=== PATIENT | female | born 1970 | race American Indian/Alaskan Native ===

== ENCOUNTER 2016-07-02 09:05 | Emergency (ER) | payer BC, OTHER ==
--- NOTE | 2016-07-02 09:26 | PDOC ---
History of Present Illness - General Chief Complaint: Blood Pressure Problem Stated Complaint: HIGH BLOOD PRESSURE Time Seen by Provider: 07/02/16 09:06 History Source: Patient Exam Limitations: No Limitations - History of Present Illness Initial Comments: 46 yo F history HTN, hypothyroid presents with elevated BP. 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 Over the past few days she states that her head felt heavy, she checked her pressure, found it to be elevated at home. BP has been 160s/100s for past 3 days. Denies WARNER, weakness , cp, SOB. She c/o numbness to L arm x1 day. Past History - Past Medical History Allergies/Adverse Reactions: Allergies Allergy/AdvReac Type Severity Reaction Status Date / Time No Known Drug Allergies Allergy Verified 07/02/16 09:06 Home Medications: Ambulatory Orders Ramipril 5 mg PO DAILY 09/12/12 Levothyroxine [Synthroid -] 50 mcg PO DAILY 07/02/16 Multivitamins [Tab-A-Vit -] 1 tab PO DAILY 07/02/16 Ramipril [Altace] 10 mg PO DAILY #7 capsule 07/02/16 HTN: Yes Thyroid Disease: Yes - Psycho/Social/Smoking Cessation Hx Anxiety: No Suicidal Ideation: No Smoking History: Never smoked Information on smoking cessation initiated: No Hx Alcohol Use: No Drug/Substance Use Hx: No Review of Systems - Review of Systems Able to Perform ROS?: Yes Comments:: GENERAL/CONSTITUTIONAL: No fever or chills. No weakness. HEAD, EYES, EARS, NOSE AND THROAT: No change in vision. No ear pain or discharge. No sore throat. CARDIOVASCULAR: No chest pain or shortness of breath. RESPIRATORY: No cough, wheezing, or hemoptysis. GASTROINTESTINAL: No nausea, vomiting, diarrhea or constipation. GENITOURINARY: No dysuria, frequency, or change in urination. MUSCULOSKELETAL: No joint or muscle swelling or pain. No neck or back pain. SKIN: No rash NEUROLOGIC: No headache, vertigo, loss of consciousness, or change in strength. +L arm numbness. ENDOCRINE: No increased thirst. No abnormal weight change. HEMATOLOGIC/LYMPHATIC: No anemia, easy bleeding, or history of blood clots. ALLERGIC/IMMUNOLOGIC: No hives or skin allergy. *Physical Exam - Vital Signs Last Vital Signs Temp Pulse Resp BP Pulse Ox 98.9 F 88 18 168/105 98 07/02/16 09:05 07/02/16 09:05 07/02/16 09:05 07/02/16 09:05 07/02/16 09:05 - Physical Exam Comments: GENERAL: Awake, alert, and fully oriented, in no acute distress HEAD: No signs of trauma EYES: PERRLA, EOMI, sclera anicteric, conjunctiva clear ENT: Auricles normal inspection, hearing grossly normal, nares patent, oropharynx clear without exudates. Moist mucosa NECK: Normal ROM, supple, no lymphadenopathy, JVD, or masses LUNGS: Breath sounds equal, clear to auscultation bilaterally. No wheezes, and no crackles HEART: Regular rate and rhythm, normal S1 and S2, no murmurs, rubs or gallops ABDOMEN: Soft, nontender, normoactive bowel sounds. No guarding, no rebound. No masses EXTREMITIES: Normal range of motion, no edema. No clubbing or cyanosis. No cords, erythema, or tenderness NEUROLOGICAL: Cranial nerves II through XII grossly intact. Normal speech, normal gait. Motor and sensation intact. SKIN: Warm, Dry, normal turgor, no rashes or lesions noted. Heart Score/ECG Review - History History: Slightly suspicious - Electrocardiogram EKG: Normal - Age Age: 45-65 - Risk Factors Risk Factors Heart Score: Yes Hx Hypertension Based on the list above the patient has:: 1-2 risk factors - Troponin Troponin: </= normal limit - Score Heart Score - Total: 2 - ECG Impressions Comment:: EKG 09:43- NSR 74 bpm, no acute ST/T changes ED Treatment Course - LABORATORY CBC & Chemistry Diagram: 07/02/16 09:55 07/02/16 09:55 Medical Decision Making - Medical Decision Making Patient was given an additional 5 mg of ramipril in the ED with improvement in her BP. Serial CE negative x2. Stable for DC home with outpatient f/u. *DC/Admit/Observation/Transfer Diagnosis at time of Disposition: Hypertension Qualifiers: Hypertension type: essential hypertension Qualified Code(s): I10 - Essential ( primary) hypertension - Discharge Dispostion Disposition: HOME Condition at time of disposition: Improved Admit: No - Prescriptions Prescriptions: Ramipril [Altace] 10 mg PO DAILY #7 capsule - Referrals Referrals: Jadon Rodríguez [Primary Care Provider] - - Patient Instructions Printed Discharge Instructions: DI for High Blood Pressure
[2016-07-02 09:30] VITALS: TEMP 98.9; BMI 26.5
[2016-07-02 10:19] LABS: BASOPHIL 1.3 % (0-2.0); EOSINOPHIL 1.5 % (0-4.5); MCHC 33.8 g/dl (32.0-36.0); MEAN CELL VOLUME 85.8 fl (80-96); MEAN PLT VOLUME 7.7 fl (7.5-11.1); NEUTROPHILS 60.7 % (42.8-82.8); PLATELET COUNT 380 K/MM3 (134-434); RDW 12.3 % (11.6-15.6); WHITE BLOOD COUNT 10.8 K/mm3 (4.0-10.0)
[2016-07-02 10:59] LABS: ALBUMIN 4.1 g/dl (3.5-5.0); ALK PHOS 57 U/L (32-92); ANION GAP 7 (8-16); BILIRUBIN,TOTAL 0.9 mg/dl (0.2-1.0); CO2 25 mmol/L (22-28); CREATININE 0.7 mg/dl (0.6-1.3); GLUCOSE,RANDOM 108 mg/dl (74-106); SGOT/AST 20 U/L (10-42); SGPT/ALT 19 U/L (10-40); TOT PROT 7.2 g/dl (6.4-8.3)
[2016-07-02 11:04] LABS: CPK(DFH) 86 IU/L (26-140)
[2016-07-02 11:27] LABS: TROPONIN I (DFP) < 0.03 ng/ml (0.03-0.50)
[2016-07-02] MEDS ORDERED: RAMIPRIL 5 MG CAPSULE (FP) PO ONE (11:44)
[2016-07-02 15:27] LABS: CPK(DFH) 74 IU/L (26-140)
[2016-07-02 15:59] LABS: TROPONIN I (DFP) < 0.03 ng/ml (0.03-0.50)
[2016-07-02 16:27] VITALS: BP 131/70; PULSE 81
[2016-07-04 13:15] LABS: THYROID STIMULATING HORMONE 3.97 uIU/ml (0.358-3.74)
--- NOTE | 2016-07-05 20:38 | EKG ---
Test Reason : Blood Pressure : / mmHG Vent. Rate : 074 BPM Atrial Rate : 074 BPM P-R Int : 170 ms QRS Dur : 076 ms QT Int : 374 ms P-R-T Axes : 025 -10 015 degrees QTc Int : 415 ms NORMAL SINUS RHYTHM NORMAL ECG WHEN COMPARED WITH ECG OF 12-SEP-2012 09:11, NO SIGNIFICANT CHANGE WAS FOUND Confirmed by HENOK DENNY MD ([id number]) on 07/05/2016 8:37:38 PM Referred By: ESTHELA Confirmed By:HENOK DENNY MD
== END 2016-07-02 16:30 | disposition home or self-care (01) ==
LOC: FER 09:05 → FM/S 12:09 → UNDOADMOB 12:09 → FER 16:30
DX: I10 Essential (primary) hypertension (principal)
CPT/HCPCS: 36415; 80053; 82550; 84443; 84484; 84703; 85025; 93005; 99285-25